=== PATIENT | female | born 1995 | race Caucasian/White ===

== ENCOUNTER → 2017-04-03 | Emergency (ER) | payer OTHER ==
[~2017-04-03] VITALS: Ht 170.2 cm; Wt 114.3 kg
[~2017-04-03] MED LIST: CAMRESE 0.15-01 EACH PO; COLACE100 MG PO; DOXYCYCLINE HY100 MG PO; GUAIFENESIN-CO118 ML PO; KEFLEX500 MG PO; MIRENA1 EACH; NAPROXEN500 MG PO; NORCO 5-325 TA1 EACH PO; PROVENTIL HFA6.7 GM INH; XANAX0.25 MG PO; ZITHROMAX250 MG PO; ZOFRAN4 MG PO
--- NOTE | 2017-04-04 19:36 | EKG ---
[facility] [address] [place] [address] Signed Sinus tachycardia Otherwise normal ECG When compared with ECG of 12-OCT-2016 20:26, Vent. rate has increased BY 45 BPM Confirmed by PORTIA PICKENS MD ([id number]) on 04/04/2017 7:36:09 PM Electronically Signed By: PORTIA PICKENS MD 04/04/17 1936 PATIENT NAME: NIMISHA ALEJANDREMagdaleno WHITNEY Electrocardiogram DATE OF : [birth year] PHYSICIAN: PORTIA PICKENS MD REPORT #: [id number] REPORT IS CONFIDENTIAL AND NOT TO BE RELEASED WITHOUT AUTHORIZATION
== END ==
LOC: ED 20:37
DX: A08.4 Viral intestinal infection, unspecified (principal); R07.89 Other chest pain; F41.9 Anxiety disorder, unspecified; F32.9 Major depressive disorder, single episode, unspecified; F17.200 Nicotine dependence, unspecified, uncomplicated; Z90.49 Acquired absence of other specified parts of digestive tract; Z90.89 Acquired absence of other organs; Z88.1 Allergy status to other antibiotic agents
CPT/HCPCS: 71020; 80053; 84484; 85025; 93005; 93010; 96374; 96375; 96376; 99284; J1885; J2405

== ENCOUNTER 2017-07-12 14:43 | Emergency (ER) | payer OTHER ==
[~2017-07-12] VITALS: Ht 170.2 cm; Wt 114.3 kg
[~2017-07-12 14:43] MED LIST changes: -DOXYCYCLINE HY100 MG PO
[2017-07-12] MEDS ORDERED: DOXYCYCLINE HY100 MG PO (19:17)
[2017-07-12] MEDS ORDERED: PROVENTIL HFA6.7 GM INH (19:17)
== END 2017-07-12 19:41 | disposition home or self-care (01) ==
LOC: ED 14:43
DX: J20.9 Acute bronchitis, unspecified (principal); J01.90 Acute sinusitis, unspecified; F41.9 Anxiety disorder, unspecified; F32.9 Major depressive disorder, single episode, unspecified; F17.200 Nicotine dependence, unspecified, uncomplicated; Z88.1 Allergy status to other antibiotic agents
CPT/HCPCS: 80053; 81001; 83690; 84703; 85025; 99283

== ENCOUNTER 2017-11-23 07:19 | Day surgery (SDC) | payer OTHER ==
[~2017-11-23] VITALS: Ht 170.2 cm; Wt 116.6 kg
[~2017-11-23 07:19] MED LIST changes: +DOXYCYCLINE HY100 MG PO
[2017-11-23] MEDS ORDERED: TYLENOL325 M1 PO (07:33)
--- NOTE | 2017-11-23 09:43 | NUR ---
PT ALERT, ORIENTED AND SUPPORTED BY A FRIEND. FIRST SCOPE, TRIED TO BE STRONG, BUT DID SHOW SOME SIGNS OF ANXIETY. EXPLAINED TODAY, PT DECLINED PRAYER, DID EXTEND A BLESSING. WILL FOLLOW NEEDED
--- NOTE | 2017-11-23 09:48 | NUR ---
11/23/17 0948 Angy Mitchell 0960-PATIENT ARRIVED TO PACU ON 3L OM O2 SAT 100% PATIENT DROWSY AWAKE DENIES PAIN OR NAUSEA. ABDOMEN SOFT. ENCOURAGED TO PASS FLATUS. EASILY FALLS BACK ASLEEP.
--- NOTE | 2017-11-23 16:54 | OR ---
[facility] [address] [place], [place] [address] Signed DATE OF OPERATION: 11/23/2017 SURGEON: Keily Mcduffie MD PREOPERATIVE DIAGNOSES: 1. Rectal bleeding. 2. Diarrhea. POSTOPERATIVE DIAGNOSIS: Unremarkable colonoscopy. PROCEDURE PERFORMED: Colonoscopy with biopsies of the terminal ileum and random biopsies in the colon. ESTIMATED BLOOD LOSS: None. INDICATIONS FOR PROCEDURE: Jyothi is a 22-year-old female, who was asked to see me for colonoscopy with biopsies. She had her gallbladder and her appendix out previously. Since the gallbladder was removed, if she eats fatty food, she ends up vomiting and often has nausea and diarrhea. She has also seen some rectal bleeding in the last several weeks. Her primary care provider wanted her to come and have a colonoscopy with biopsies. I met with Jyothi in the office. I gave her a pamphlet on colonoscopy. We discussed the nature of the test along with the risks including, but are not limited to gas, bloating, crampy abdominal pain, bleeding, perforation, requiring surgery, and missed diagnosis. We also discussed the need for IV conscious sedation. She had expressed understanding and wished to proceed. PROCEDURE NOTE: Jyothi was taken into our endoscopy suite and placed in the left lateral decubitus position. She was given 7 mg of Versed and 125 mcg of fentanyl to cover the case. A digital rectal exam was performed and this was unremarkable. She has very good sphincter tone. The adult colonoscope was then introduced and advanced all around into the cecum under direct visualization of camera without difficulty. Her prep was moderate. She had a couple areas of liquid particulate stool matter that I could not quite suction out completely. I turned the scope and we went up into the terminal ileum about 10-15 cm. It looked quite healthy. We went ahead and took a couple biopsies of the terminal ileum. The scope was then withdrawn back into the colon. The scope was then slowly withdrawn. We took random cold biopsies throughout the colon. No evidence Electronically Signed By: KEILY MCDUFFIE MD 11/23/17 1654 PATIENT NAME: JYOTHI ALEJANDRE OPERATIVE REPORT DATE OF : [birth year] REPORT #: [id number] PHYSICIAN: KEILY MCDUFFIE MD PCP: KENIA TURCIOS REPORT IS CONFIDENTIAL AND NOT TO BE RELEASED WITHOUT AUTHORIZATION [facility] [address] [place] [id number] Signed of any pathology in the colon or rectum. Upon retroflexion of the scope, I did not see any pathology above the anal canal. After this, the gas was suctioned out and the colonoscope removed. Jyothi tolerated the procedure quite well. RECOMMENDATIONS: I will see Jyothi back in my office in 7 to 14 days to review her results. MD KEE Watst/THANGL /[id number] cc: Kenia Turcios PA-C Copies: KENIA TURCIOS ~ Electronically Signed By: KEILY MCDUFFIE MD 11/23/17 1654 PATIENT NAME: JYOTHI ALEJANDRE OPERATIVE REPORT DATE OF : [birth year] REPORT #: [id number] PHYSICIAN: KEILY MCDUFFIE MD PCP: KENIA TURCIOS PAC REPORT IS CONFIDENTIAL AND NOT TO BE RELEASED WITHOUT AUTHORIZATION
== END 2017-11-23 10:47 | disposition home or self-care (01) ==
LOC: OPS 07:19 → DS 07:19 → OPS 10:47
PROVIDERS: Colon & Rectal Surgery
PROC: 0DBE8ZX Excision of Large Intestine, Via Natural or Artificial Opening Endoscopic, Diagnostic (ICD-10-PCS; 2017-11-23)
PROC: 0DBB8ZX Excision of Ileum, Via Natural or Artificial Opening Endoscopic, Diagnostic (ICD-10-PCS; principal; 2017-11-23 09:00)
DX: K62.5 Hemorrhage of anus and rectum (principal); K91.5 Postcholecystectomy syndrome; J45.909 Unspecified asthma, uncomplicated; F32.9 Major depressive disorder, single episode, unspecified; E66.9 Obesity, unspecified; F41.9 Anxiety disorder, unspecified; F17.210 Nicotine dependence, cigarettes, uncomplicated; Z90.49 Acquired absence of other specified parts of digestive tract; Z88.1 Allergy status to other antibiotic agents; Z68.41 Body mass index [BMI] 40.0-44.9, adult
CPT/HCPCS: 99153; G0500; J2250; J2405; J3010; J7120

== ENCOUNTER 2023-07-20 05:30 | Day surgery (SDC) | payer OTHER ==
[2023-07-14 16:55] VITALS: BP 132/86
[~2023-07-20] VITALS: Ht 170.2 cm; Wt 116.4 kg
--- NOTE | ~2023-07-20 | OR ---
[address] [address] Draft DATE OF OPERATION: 07/20/2023 SURGEON: César Mckee DO PREOPERATIVE DIAGNOSES: 1. Abnormal uterine bleeding. 2. Dysmenorrhea. 3. Dyspareunia. 4. Endometrial polyp. POSTOPERATIVE DIAGNOSES: 1. Abnormal uterine bleeding. 2. Dysmenorrhea. 3. Dyspareunia. 4. Endometrial polyp. 5. Endometriosis of the pelvic peritoneum. PROCEDURES PERFORMED: 1. Hysteroscopy, D and C. 2. Polypectomy. 3. Laparoscopic excision and fulguration of endometriosis. PICK UP ATTENDANT: Sue Womack MD ANESTHESIA: General. ESTIMATED BLOOD LOSS: 10 mL. FLUIDS: Deficit 290 mL. SPECIMENS: 1. Endometrial polyp and curettings. 2. Pelvic peritoneum endometriosis. DRAINS: None. PATIENT NAME: ROSA FARRELL OPERATIVE REPORT DATE OF : [birth year] REPORT #: [id number] PHYSICIAN: CÉSAR MCKEE DO (JD) PCP: JOSE TURCIOS PAC REPORT IS CONFIDENTIAL AND NOT TO BE RELEASED WITHOUT AUTHORIZATION [facility] [address] [place] [id number] Draft IMPLANTS: None. FINDINGS: Thickened endometrium with endometrial polyps on hysteroscopy. Normal vagina and cervix. On laparoscopy, normal right upper quadrant. Endometriosis of the pelvic peritoneum and epiploica. Endometriosis was located in the left uterosacral ligament and the right cul-de-sac. All gross endometriosis was either excised or fulgurated in total. INDICATIONS: Ms. Farrell is a very pleasant 28-year-old, G1, P1 female, who presents with a history of dysmenorrhea. This started approximately nine years ago after delivery of her daughter. She reports that "I feel like before my menstrual cycles." She has pain at least two weeks out of the month that she "has to plan my life around." An ultrasound was performed demonstrating a 9.4 cm uterus with endometrium of 8.4 mm with possible endometrial polyp. The patient also reported significant dyspareunia. She has failed IUD. OCPs and NuvaRing in the past. The patient was consented for hysteroscopy, D and C, as well as diagnostic laparoscopy with possible excision of endometriosis. Risks, benefits, and alternatives were discussed in detail with the patient. The patient understands and wishes to proceed with the procedure. TECHNIQUE: The patient was taken to the OR. A time-out was performed to confirm correct patient and correct procedure. General anesthesia was adequately established. The patient was prepped and draped in dorsal lithotomy position with feet in Yellofin stirrups. ICPs were on and running and no preoperative antibiotics or heparin was indicated. Fair catheter was inserted. A weighted speculum was placed in the vagina and the anterior lip of the cervix was grasped with Allis clamp. The cervix was gently dilated using Hegar dilators to a #7. Operative hysteroscope was then placed in the cervical os and advanced under direct visualization into the uterine cavity. Correct position was confirmed by identifying the tubal ostia bilaterally. The endometrium appeared thickened and polypoid in nature. The MyoSure Lite device was selected and advanced under direct visualization and circumferential curettage of the endometrial polyps were performed. The hysteroscope was withdrawn and fluid deficit was noted to be 290 mL. The Allis clamp was removed and a HulJoosy uterine manipulator was placed. Attention was then turned to the abdomen after the surgeon's gloves were changed. Just inferior to the umbilicus, the skin was infiltrated with 0.25% Marcaine with epinephrine and a 3 cm curvilinear incision was made using an 11 blade. The fascia was then grasped with PATIENT NAME: ROSA FARRELL OPERATIVE REPORT DATE OF : [birth year] REPORT #: [id number] PHYSICIAN: CÉSAR MCKEE) PCP: JOSE TURCIOS PAC REPORT IS CONFIDENTIAL AND NOT TO BE RELEASED WITHOUT AUTHORIZATION [facility] [address] [place], [place] [address] Draft hemostats, elevated, and the fascia was entered sharply with Metzenbaum scissors. The superior and inferior edge of the fascial incision was tagged with #0 Vicryl stay sutures. The peritoneum was then entered bluntly and a Faustina operative port was placed without difficulty and pneumoperitoneum was established without difficulty with low opening pressures. A 5 mm assist port was placed in left lower quadrant and the right lower quadrant under direct visualization without complication. Careful survey of the abdomen and pelvis was performed. Normal uterus, tubes, and ovaries were appreciated. She has powder-burn lesions consistent with endometriosis on the left uterosacral ligament and in the right cul-de-sac. She also has epiploica with the endometrial lesion noted. No other endometriosis lesions were noted. In the pelvis, no other abnormalities were identified. The endometriosis implant in the right cul-de-sac was grasped with Dolphin tip grasper elevated and the peritoneum was entered sharply with the surgical donald just through the peritoneal edge. The peritoneum was gently undermined with the donald bluntly, freeing the endometrial implant from the retroperitoneal tissue. The freed peritoneal implant was then excised carefully using surgical donald. A small amount of oozing was noted after the peritoneum biopsy was sent to Pathology for further evaluation. The cut edges of the peritoneum were then gently made hemostatic with monopolar cautery. Attention was then turned to the endometrial implants over the left uterosacral ligament. Due to their location, fulguration was selected as the management. A monopolar hook was used to carefully fulgurate the pelvic peritoneum with careful attention to the pelvic anatomy. All gross endometrial implants of the pelvic peritoneum had been then excised were fulgurated. Attention was turned to the endometrial implant of the epiploica. The epiploica was carefully evaluated and found to be a well away from the rectum. This was gently dissected off using surgical donald and the edge of the epiploica was made hemostatic with monopolar cautery. The pelvis was irrigated, found to be hemostatic. Pneumoperitoneum was reduced and trocar were removed. The infraumbilical fascia was then reapproximated with #0 Vicryl in a running nonlocked manner and stay sutures were plicated to reinforce the fascial incision. Skin was reapproximated using 4-0 Monocryl and a subcuticular stitch. The Hulka uterine manipulator was removed and the Fair catheter was removed. The patient was then taken to PACU in good and stable condition. Sponge, needle, instrument count was correct x2 at the end the procedure. Dr. Womack was present participated in all portions of procedure. César Mckee DO JDARIUS/MODL PATIENT NAME: ROSA FARRELL OPERATIVE REPORT DATE OF : [birth year] REPORT #: [id number] PHYSICIAN: CÉSAR MCKEE DO (JD) PCP: JOSE TURCIOS PAC REPORT IS CONFIDENTIAL AND NOT TO BE RELEASED WITHOUT AUTHORIZATION [address] [address] [facility] /[id number] Copies: ~ PATIENT NAME: ROSA FARRELL OPERATIVE REPORT DATE OF : [birth year] REPORT #: [id number] PHYSICIAN: CÉSAR MCKEE DO (JD) PCP: JOSE TURCIOS PAC REPORT IS CONFIDENTIAL AND NOT TO BE RELEASED WITHOUT AUTHORIZATION
[~2023-07-20 05:30] MED LIST changes: +TYLENOL325 M1 PO
[2023-07-20 05:56] VITALS: BP 109/65
[2023-07-20 09:53] VITALS: BP 108/94
[2023-07-20 10:52] VITALS: BP 109/60
--- NOTE | 2023-07-22 15:38 | PATH ---
[facility] [address] [place], [place] [address] Signed SPECIMEN(S): A ENDOMETRIAL CURETTINGS AND POLYP SPECIMEN(S): B RIGHT CUL-DE-SAC ENDOMETRIOSIS SPECIMEN SOURCE: A. ENDOMETRIAL CURETTINGS AND POLYP B. RIGHT CUL-DE-SAC ENDOMETRIOSIS CLINICAL HISTORY: Abnormal uterine bleeding. FINAL PATHOLOGIC DIAGNOSIS: A. Endometrial curettings and polyp: - Benign proliferative endometrium, negative for hyperplasia or atypia. B. Right cul-de-sac endometriosis: - Benign soft tissue with endometriosis. JVR:naseem MICROSCOPIC EXAMINATION: Histologic sections of all submitted blocks are examined by light microscopy. These findings, together with the gross examination, support the pathologic diagnosis. GROSS DESCRIPTION: A. The specimen, labeled and designated "Bud, endometrial curettings and polyp," is received in formalin and consists of multiple fragments of soft feliciano-red tissue and blood measuring 3.5 x 2.5 x 0.2 cm in aggregate. Entirely submitted in (A1). B. The specimen, labeled and designated "Bud, right cul-de-sac endometriosis," is received in formalin and consists of yellow-feliciano, fibroadipose tissue fragment that measure 1.2 x 0.8 x 0.4 cm. Sectioning through the specimen to reveal yellow-feliciano homogenous tissue. Entirely submitted in (B1). JS (under the direct supervision of a pathologist) The Gross Description was prepared using a voice recognition system. The report was reviewed for accuracy; however, sound-alike word errors, addition and/or deletions may occur. If there is any question about this report, please contact Client Services. PERFORMING LABORATORY: Technical component was performed by [facility], [address] [place] [id number] (CLIA# [id number]). PATIENT NAME: ROSA ALEJANDRE PATHOLOGY DATE OF : [birth year] REPORT #: [id number] PHYSICIAN: [facility] PCP: JOSE TURCIOS PAC REPORT IS CONFIDENTIAL AND NOT TO BE RELEASED WITHOUT AUTHORIZATION [facility] [address] [place], [place] [address] Signed Professional interpretation was performed by [facility], [address] [place] [address], [place] [address] (CLIA#: [id number]). Diagnostician: Silvestre Monte MD Pathologist Electronically Signed 07/22/2023 Copies: ~ PATIENT NAME: ROSA ALEJANDRE PATHOLOGY DATE OF : [birth year] REPORT #: [id number] PHYSICIAN: [facility] PCP: JOSE TURCIOS PAC REPORT IS CONFIDENTIAL AND NOT TO BE RELEASED WITHOUT AUTHORIZATION
== END 2023-07-20 12:00 | disposition home or self-care (01) ==
LOC: OPS 05:30 → DS 05:30 → OPS 07:30
PROVIDERS: ATTEND Obstetrics & Gynecology
PROC: 0UB98ZX Excision of Uterus, Via Natural or Artificial Opening Endoscopic, Diagnostic (ICD-10-PCS; principal; 2023-07-20 07:30)
DX: N80.30 Endometriosis of pelvic peritoneum, unspecified (principal); N84.0 Polyp of corpus uteri
CPT/HCPCS: 00952; 88305; J0131; J1100; J1885; J2250; J2405; J2704; J3010; J3490; J7121

== ENCOUNTER 2023-12-14 05:55 | Day surgery (SDC) | payer BC ==
[~2023-12-14] VITALS: Ht 170.2 cm; Wt 112.0 kg
[~2023-12-14 05:55] MED LIST changes: +LACTATED RINGER'S 1,000 ML IV SCH
[2023-12-14 06:12] VITALS: BP 132/72
[2023-12-14] MEDS ORDERED: IBLOOD GLUCOSE TEST STRIP 1 EA TEST VI PRN ×2 (07:00→09:30)
[2023-12-14] MEDS ORDERED: HEParin SOD (PORCINE) 5,000 UNIT/0.5 ML SYR SUB-Q SCH (07:00)
[2023-12-14] MEDS ORDERED: LIDOCAINE HCL 1% 5 ML SDV INJ ONE (07:00)
[2023-12-14] MEDS ORDERED: CEFAZOLIN SODIUM 2 GM/20 ML SYR IV SCH (07:00)
[2023-12-14] MEDS ORDERED: fentaNYL citrate 100 MCG/2 ML VIAL ONE ×2 (07:12→08:07)
[2023-12-14] MEDS ORDERED: KETAMINE in NS 50 MG/5 ML SYR ONE ×2 (07:12→08:54)
[2023-12-14] MEDS ORDERED: MIDAZOLAM HCL 2 MG/2 ML VIAL ONE (07:12)
[2023-12-14] MEDS ORDERED: ondansetron HCL 4 MG/2 ML VIAL ONE (07:13)
[2023-12-14] MEDS ORDERED: SCOPOLAMINE 1 MG/3 DAYS PATCH 1 EACH TDSY ONE (07:13)
[2023-12-14] MEDS ORDERED: MAGNESIUM SULFATE 1 GM/2 ML VIAL ONE ×2 (07:13→09:18)
[2023-12-14] MEDS ORDERED: DEXAMETHASONE SOD PHOS 4 MG/ML VIAL ONE (07:13)
[2023-12-14] MEDS ORDERED: dexmedeTOMIDine HCl 200 MCG/2 ML VIAL ONE (07:13)
[2023-12-14] MEDS ORDERED: propofoL 200 MG/20 ML VIAL ONE ×4 (07:13→08:51)
[2023-12-14] MEDS ORDERED: ROCURONIUM BROMIDE 50 MG/5 ML SYR ONE ×2 (07:14→08:29)
[2023-12-14] MEDS ORDERED: LIDOCAINE HCL 2% 5 ML SDV ONE ×2 (07:14→09:12)
[2023-12-14] MEDS ORDERED: SODIUM CHLORIDE 0.9% 40 ML IV ONE ×3 (07:14→09:17)
[2023-12-14] MEDS ORDERED: KETOROLAC TROMETHAMINE 30 MG/ML VIAL ONE (07:14)
[2023-12-14] MEDS ORDERED: Ropivacaine HCl 0.5% 30 ML VIAL ONE (07:14)
[2023-12-14] MEDS ORDERED: ACETAMINOPHEN 1,000 MG/100 ML VIAL ONE (07:14)
[2023-12-14] MEDS ORDERED: METOCLOPRAMIDE HCL 10 MG/2 ML SDV ONE (07:48)
[2023-12-14] MEDS ORDERED: GLYCOPYRROLATE 1 MG/5 ML MDV ONE (07:49)
[2023-12-14] MEDS ORDERED: FLUORESCEIN SODIUM 500 MG/5 ML ML ONE (09:27)
[2023-12-14] MEDS ORDERED: HYDROmorphone HCL 1 MG/ML SYR IV PRN (09:30)
[2023-12-14] MEDS ORDERED: ondansetron HCL 4 MG/2 ML VIAL IV PRN ×2 (09:30→10:15)
[2023-12-14] MEDS ORDERED: NALOXONE HCL 0.4 MG SYR IV PRN ×2 (09:30→10:15)
[2023-12-14] MEDS ORDERED: droPERidol 5 MG/2 ML VIAL IV PRN (09:30)
[2023-12-14] MEDS ORDERED: SUGAMMADEX SODIUM 200 MG/2 ML ML ONE (09:32)
[2023-12-14] MEDS ORDERED: METOCLOPRAMIDE HCL 10 MG/2 ML SDV IV PRN (10:15)
[2023-12-14] MEDS ORDERED: OXYCODONE/APAP 5/325 TAB PO PRN (10:15)
[2023-12-14] MEDS ORDERED: MORPHINE SULFATE 10 MG/ML VIAL IV PRN (10:15)
[2023-12-14] MEDS ORDERED: FAMOTIDINE 20 MG/ 2 ML VIAL IV PRN (10:15)
[2023-12-14] MEDS ORDERED: MAGNESIUM HYDROXIDE/AL HYDROX 30 ML CUP PO PRN (10:15)
[2023-12-14] MEDS ORDERED: SIMETHICONE 125 MG TABLET CHEWABLE PO PRN (10:15)
--- NOTE | 2023-12-14 10:18 | NUR ---
12/14/23 1018 Libby Cameron 3730 PT ARRIVED IN PACU SLEEPY. 1000 WHEN ASKED IF HAVING PAIN, GAVE THUMBS UP FOR PAIN. ANESTHESIA GAVE PAIN MEDICATION. 1010 DR AT BEDSIDE. PT RESTING. 1016 C/O NAUSEA. INAPSINE 0.625MG GIVEN IV.
[2023-12-14 10:43] VITALS: BP 96/49
--- NOTE | 2023-12-14 10:55 | NUR ---
1055-PT BACK TO ROOM FROM PACU ON RA. RECEIVED REPORT FROM HERNANDO HARPER. PT IS DROWSY, ANSWERES QUESTIONS. RESP EVEN AND UNLABORED. RATES PAIN 4/10 AND DENIES NAUSEA. PT DRINKING WATER AND CRACKERS ON BEDSIDE TABLE. WARM BLANKET PROVIDED. NO OTHER NEEDS AT THIS TIME. CALL LIGHT WITHIN REACH. MOM AT BEDSIDE.
[2023-12-14 11:41] VITALS: BP 104/57
--- NOTE | 2023-12-14 11:48 | NUR ---
1055-PT BACK TO ROOM FROM PACU ON RA. RECEIVED REPORT FROM HERNANDO HARPER. PT IS DROWSY. AWAKES EASILY AND ANSWERES QUESTIONS. RESP EVEN AND UNLABORED. RATES PAIN A 5/10, AND THIS IS TOLERABLE AT THIS TIME. DENIES NAUSEA. PT HAS BEEN DRINKING WATER AND ATE CRACKERS. NO OTHER NEEDS AT THIS TIME. CALL LIGHT WITHIN REACH. MOM AT BEDSIDE.
--- NOTE | 2023-12-14 11:51 | NUR ---
1145-PT IS DROWSY. AWAKES EASILY AND ANSWERS QUESTIONS. RESP EVEN AND UNLABORED. RATES PAIN A 5/10 AND THIS IS TOLERABLE AT THIS TIME. DENIES NAUSEA. PT IS DRINKING WATER. NO OHTER NEEDS AT THIS TIME. MOM AT BEDSIDE. CALL LIGHT WITHIN REACH.
--- NOTE | 2023-12-14 12:31 | NUR ---
1230 PT USED CALL LIGHT TO ALERT NURSE THAT PT NEEDED TO PEE. PT ABLE TO AMBULATE TO BATHROOM AND VOID 200 MLS URINE. PT BACK IN BED WITH CALL LIGHT WITHIN REACH.
[2023-12-14 12:45] VITALS: BP 111/61
[2023-12-14] MEDS ORDERED: SIMETHICONE 125 MG TABLET CHEWABLE PO SCH (13:00)
--- NOTE | 2023-12-14 13:25 | NUR ---
JOAN 1235-PT LAYING IN BED. RESP EVEN AND UNLABORED. RATES PAIN /10. DENEIS NAUSEA. PT WOULD LIKE TO GO HOME. PT WILL GET DRESSED. MOM IN ROOM HELPING PT.
--- NOTE | 2023-12-14 15:25 | NUR ---
LE 1255 PATIENT GIVEN DISCHARGE INSTRUCTIONS. NO QUESTIONS AT THIS TIME. IV D/C'D WNL. PATIENT WHEELED OUT OF FACILTY NO FUTHER NEEDS.
--- NOTE | 2023-12-17 12:07 | PATH ---
[facility] [address] [place], [place] [address] Signed SPECIMEN(S): A UTERUS, CERVIX, BILATERAL TUBES SPECIMEN SOURCE: A. UTERUS, CERVIX, BILATERAL TUBES CLINICAL HISTORY: Endometriosis, AUB, dysmenorrhea, dyspareunia FINAL PATHOLOGIC DIAGNOSIS: Uterus with bilateral fallopian tubes, hysterectomy with bilateral salpingectomy: - Secretory phase endometrium; no hyperplasia or neoplasia identified - Adenomyosis - Cervix with no significant pathologic changes - Bilateral fallopian tubes with paratubal cysts BRP MICROSCOPIC EXAMINATION: Histologic sections of all submitted blocks are examined by light microscopy. These findings, together with the gross examination, support the pathologic diagnosis. GROSS DESCRIPTION: The specimen, labeled and designated "Bud, uterus, cervix, bilateral fallopian tubes," is received in formalin and consists of a uterus (130 g, 6.6 cm superior-inferior, 6.8 cm partial cornu, 4.7 cm anterior-posterior), attached cervix (2.5 cm length by 3.2 cm in diameter) with pink-feliciano smooth cervical mucosa and patent slit-shaped os (1.0 x 0.3 cm), and 2 detached undesignated fimbriated fallopian tube segments (6.0 cm length and ranging diameter from 0.7 to 0.8 cm, and 5.6 cm in length and ranging in diameter from 0.7 to 1.2 cm). One fallopian tube segment is arbitrarily inked blue. Both fallopian tube segments are red-brown with attached paratubal cysts that measure 0.4 to 0.5 cm in greatest dimension and are sectioned to reveal a feliciano-pink soft cut surface with pinpoint lumen. The fimbriae are entirely submitted. The uterine serosa is pink-feliciano and smooth. The cervix is sectioned to reveal a pink-feliciano herringbone endocervical mucosa (endocervical canal: 2.5 cm length by 1.4 cm in diameter). Sectioning of the uterus reveals an endometrial cavity (4.5 cm superior-inferior by 3.5 cm cornu PATIENT NAME: ROSA ALEJANDRE PATHOLOGY DATE OF : [birth year] REPORT #: [id number] PHYSICIAN: HALIMA STALEY PCP: JOSE TURCIOS PAC REPORT IS CONFIDENTIAL AND NOT TO BE RELEASED WITHOUT AUTHORIZATION [facility] [address] [place], [place] [address] Signed to cornu) with red-brown endometrial lining that measures up to 0.4 centimeters in thickness. The myometrium (1.9 cm in greatest thickness) is pink-feliciano and trabeculated with no masses or lesions grossly identified. All [employer] sections are submitted. Cassette Summary: (A1-A2) fallopian tubes (A3) cervix (A4) full-thickness uterine wall AC (under the direct supervision of a pathologist) The Gross Description was prepared using a voice recognition system. The report was reviewed for accuracy; however, sound-alike word errors, addition and/or deletions may occur. If there is any question about this report, please contact Client Services. ADDITIONAL NOTES: Immunohistochemical and/or in situ hybridization studies if performed in this case included appropriate positive controls that reacted as expected. This test was developed and its performance characteristics determined by [facility]. It has not been cleared or approved by the U.S. Food and Drug Administration. The FDA has determined that such clearance or approval is not necessary. This test is used for clinical purposes. It should not be regarded as investigational or for research. [facility] is certified under the Clinical Laboratory Improvement Amendments of 1988 (CLIA) as qualified to perform high complexity clinical laboratory testing. PERFORMING LABORATORY: Technical component was performed by [facility], [address] [place] [id number] (CLIA# [id number]). Professional interpretation was performed by [facility] - [address] [id number] Diagnostician: Edson Boggs MD Pathologist Electronically Signed 12/17/2023 Copies: ~ PATIENT NAME: ROSA ALEJANDRE PATHOLOGY DATE OF : [birth year] REPORT #: [id number] PHYSICIAN: HALIMA STALEY PCP: JOSE TURCIOS PAC REPORT IS CONFIDENTIAL AND NOT TO BE RELEASED WITHOUT AUTHORIZATION
--- NOTE | 2023-12-20 21:59 | OR ---
[facility] [address] [place], [place] [address] Signed DATE OF OPERATION: 12/14/2023 SURGEON: César Mckee DO PREOPERATIVE DIAGNOSES: 1. Dysmenorrhea. 2. Abnormal uterine bleeding. 3. Endometriosis. POSTOPERATIVE DIAGNOSES: 1. Dysmenorrhea. 2. Abnormal uterine bleeding. 3. History of endometriosis with no residual lesions noted. PROCEDURES PERFORMED: 1. Total laparoscopic hysterectomy. 2. Bilateral salpingectomy. 3. Cystoscopy. MEAT HANGER: Sue Womack M.D. ANESTHESIA: General with peripheral nerve block per Anesthesia. ESTIMATED BLOOD LOSS: 25 mL. SPECIMENS: Uterus, tubes, and cervix. DRAINS: Fair to gravity. FINDINGS: Normal external genitalia with normal clitoris, urethral meatus, bilateral Saint Catharine's, Bartholin's glands. Normal vagina and cervix. On laparoscopy, normal uterus, tubes, and ovaries with no residual endometriosis noted on careful laparoscopy. Hemostasis at the end of the procedure with excellent apical support. Normal bladder with normal bladder dome. Bilateral ureteral jets. Electronically Signed By: CÉSAR MCKEE DO (JD) 12/20/23 2159 PATIENT NAME: ROSA FARRELL OPERATIVE REPORT DATE OF : [birth year] REPORT #: [id number] PHYSICIAN: CÉSAR MCKEE DO (JD) PCP: JOSE TURCIOS PAC REPORT IS CONFIDENTIAL AND NOT TO BE RELEASED WITHOUT AUTHORIZATION [facility] [address] [place], [place] [address] Signed COMPLICATIONS: None. INDICATIONS: Mrs. Farrell is a very pleasant 28-year-old female with a long history of dysmenorrhea, abnormal bleeding, and endometriosis. She has failed conservative therapy and requested definitive treatment with total laparoscopic hysterectomy, bilateral salpingectomy, and cystoscopy. Risks, benefits, and alternatives were discussed in detail with the patient. The patient understands and wishes to proceed with the procedure. DESCRIPTION OF PROCEDURE: The patient was taken to the OR. Time-out was performed to confirm correct patient and correct procedure. General anesthesia was adequately established after the patient had previously placed peripheral nerve block by Anesthesia. The patient was prepped and draped in the dorsal lithotomy position with feet in Yellofin stirrups. ICPs were on and running. The patient received Ancef 2 g preoperatively and heparin 5000 units. Fair catheter was inserted. Weighted speculum was placed in vagina and the anterior lip of the cervix was grasped with an Allis clamp. The cervix was gently dilated using Hegar dilators and a VCare uterine manipulator was placed. Surgeon's gloves were changed. Attention was turned to the abdomen. Just below the umbilicus through the prior incision, the skin was infiltrated with 0.25% Marcaine with epinephrine. A curvilinear incision was made using a surgical scalpel. The fascia was grasped, elevated, and entered sharply. Stay sutures of 0-Vicryl placed in the superior and inferior edges of the fascial incision. The peritoneum was then entered bluntly and a Faustina operative port was placed. Pneumoperitoneum was established with low opening pressures noted. Survey of the abdomen and pelvis was performed with normal pelvic findings. A 5 mm sugar laboratory assistant port was placed in the left lower quadrant and an 8 mm expanding port was placed in the right lower quadrant under direct visualization without complication. Attention was turned to the pelvis and careful evaluation of all peritoneal surfaces demonstrates no residual endometriosis. The left fallopian tube was grasped at the fimbriated end, elevated and dissected along the mesosalpinx using LigaSure device, this was removed and sent to Pathology for further evaluation. The left uteroovarian ligament was fulgurated and divided with excellent hemostasis. The left round ligament was fulgurated and divided. The leaves of the broad ligament were divided. The leaves were divided from the midportion around to the edge of the vaginal cup superiorly and carried across the superior edge of the vaginal cup. The posterior leaf dissection was carried from the midportion of the round to the uterosacral ligament across the posterior edge of the vaginal cup. The uterine vessels were identified, fulgurated, and divided with excellent hemostasis. The process was repeated on the right side with division of the fallopian tube along the mesosalpinx, division and fulguration of the uteroovarian ligament, round ligament, and dissection of the leaves Electronically Signed By: CÉSAR DELA CRUZ) DO LATRELL 12/20/23 2159 PATIENT NAME: ROSA FARRELL OPERATIVE REPORT DATE OF : [birth year] REPORT #: [id number] PHYSICIAN: CÉSAR MCKEE DO (JD) PCP: JOSE TURCIOS PAC REPORT IS CONFIDENTIAL AND NOT TO BE RELEASED WITHOUT AUTHORIZATION [facility] [address] [place] [address] [place] [address] Signed of the broad ligament. The bladder was pushed well below the edge of the vaginal cuff. The right uterine vessels were identified, fulgurated, divided with excellent hemostasis. Colpotomy was performed using Sonicision device and the uterus and cervix were delivered through the vagina without difficulty. Pneumoperitoneum was reestablished by placing a wet lap sponge inside of a glove and stuffing this inside the vagina. The pelvis was irrigated and a small amount of oozing was noted along the posterior edge of the peritoneal incision. This was fulgurated with excellent hemostasis. Colpotomy was then repaired using V-Loc suture with an Endostitch device with excellent apical support and hemostasis appreciated after careful attention to incorporate the uterosacral ligaments bilaterally and to incorporate the vaginal epithelium with each bite. Again, the pelvis was irrigated, found to be hemostatic. All irrigation fluid was suctioned from the abdomen and pelvis. Pneumoperitoneum was reduced. Trocars were removed and infraumbilical trocar site was repaired using 0-Vicryl in a running nonlocked manner. Skin was reapproximated using 4-0 Vicryl Rapide in a subcuticular stitch. Attention was then turned to cystoscopy. The Fair catheter was removed and a 70-degree cystoscope was placed in the urethral meatus and advanced under direct visualization to the bladder. Normal bladder dome was appreciated. There was some delay, however, bilateral ureteral jets were appreciated. The bladder was drained. Fair catheter was reinserted. The patient was taken to PACU in good and stable condition. Sponge, needle, and instrument counts correct x2 at the end of the procedure. Dr. Womack was present and participated in all portions of the procedure. DO OUMOU Tee/THANGL /[id number] Copies: ~ Electronically Signed By: CÉSAR MCKEE DO (JD) 12/20/23 2159 PATIENT NAME: ROSA FARRELL OPERATIVE REPORT DATE OF : [birth year] REPORT #: [id number] PHYSICIAN: CÉSAR MCKEE (JULIEN) PCP: JOSE TURCIOS PAC REPORT IS CONFIDENTIAL AND NOT TO BE RELEASED WITHOUT AUTHORIZATION
== END 2023-12-14 12:55 | disposition home or self-care (01) ==
LOC: DS 05:55
PROVIDERS: ATTEND Obstetrics & Gynecology
PROC: 0UT94ZZ Resection of Uterus, Percutaneous Endoscopic Approach (ICD-10-PCS; principal; 2023-12-14 07:30)
PROC: 0UB74ZZ Excision of Bilateral Fallopian Tubes, Percutaneous Endoscopic Approach (ICD-10-PCS; 2023-12-14 07:30)
DX: N80.9 Endometriosis, unspecified (principal); N80.03 Adenomyosis of the uterus; N83.8 Other noninflammatory disorders of ovary, fallopian tube and broad ligament; N94.10 Unspecified dyspareunia; N93.9 Abnormal uterine and vaginal bleeding, unspecified
CPT/HCPCS: 00840; 76942; 88307; J0131; J0690; J1100; J1644; J1790; J1885; J2001; J2250; J2405; J2704; J2765; J2795; J3010; J3475; J3490; J7121